=== PATIENT | male | born 1990 | race Asian ===

== ENCOUNTER 2020-01-12 11:26 | Emergency (ER) | payer OTHER ==
--- NOTE | 2020-01-12 12:00 | NUR ---
MAT TEAM CALLED PER ER DIANN Hernandez
[2020-01-12 12:21] LABS: BASOPHILS # (AUTO) 0.1 (0.0-0.1); EOSINOPHILS # (AUTO) 0.4 (0.0-0.4); EOSINOPHILS % 3.7 % (0.0-6.0); HEMATOCRIT 44.1 % (38.2-49.6); HEMOGLOBIN 14.7 g/dL (14.0-18.0); LYMPHOCYTES # (AUTO) 3.4 (1.0-3.2); LYMPHOCYTES % 33.9 % (18.0-39.1); MEAN CORPUSCULAR HEMOGLOBIN 30.6 pg (28-32); MEAN CORPUSCULAR HGB CONC 33.3 g/dL (31-35); MEAN CORPUSCULAR VOLUME 91.9 fL (81-99); MONOCYTES # (AUTO) 0.8 (0.2-0.8); MONOCYTES % 8.1 % (4.4-11.3); NEUTROPHILS # (AUTO) 5.3 (2.1-6.9); PLATELET COUNT 433 x10e3/uL (140-360); RED CELL DISTRIBUTION WIDTH 11.9 % (11.7-14.4)
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
[2020-01-12 12:48] LABS: ALANINE AMINOTRANSFERASE 30 IU/L (0-55); ALBUMIN 4.4 g/dL (3.5-5.0); ALKALINE PHOSPHATASE 51 IU/L (40-150); ANION GAP 16.8 mmol/L (8-16); BLOOD UREA NITROGEN 21 mg/dL (7-26); BUN/CREATININE RATIO 20 (6-25); CALCIUM 9.9 mg/dL (8.4-10.2); CARBON DIOXIDE 22 mmol/L (22-29); CHLORIDE 102 mmol/L (98-107); CREATININE, SERUM 1.06 mg/dL (0.72-1.25); EST GLOMERULAR FILTRATION RATE > 60 ML/MIN (60-); GLUCOSE 106 mg/dL (74-118); POTASSIUM 3.8 mmol/L (3.5-5.1); SODIUM 137 mmol/L (136-145)
[2020-01-12 13:19] LABS: SALICYLATE < 5.0 mg/dL (0-30)
--- NOTE | 2020-01-12 13:40 | NUR ---
PT SUDDENLY GOT OUT OF BED, PULLED OUT HIS IV. PT STATES HE NEEDS TO GO. ASKED PT IF HE NEEDED TO GO TO THE RESTROOM, HE STATED YES. PROVIDED PT WITH URINE SPECIMEN COLLECTION CUP AND INSTURCTE DPT TO DEPOSIT A URINE SAMPLE IN IT. PT AMBULATED TO RESTROOM WITH THIS CLINICIAN AND FOOT IN DOOR WAS IN PLACE. PT DISCARDED CUP AND URINATED IN TOILET AND THEN FLUSHED PROMPTLY. PT STATED, "I FORGOT, I NEED TO GO". PT AMBULATED BACK TO ROOM. GUARDS AT BEDSIDE. PT DID NOT WANT TO LAY DOWN IN STRETCHER, BUT RATHER SIT IN CHAIR. WILL CONTINUE TO MONITOR.
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
[2020-01-12 13:51] LABS: THYROID STIMULATING HORMONE 0.762 uIU/mL (0.350-4.940)
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
--- NOTE | 2020-01-12 14:45 | NUR ---
MORE WITH MAT TEAM CALLED AND ASKED IF PT COULD DO A ZOOM CALL FOR PSYCH EVAL DUE TO MAT TEAM BEING SHORT STAFFED AND SOMEON MAY NOT BE ABLE TO ASSESS PATIENT IN PERSON FOR A FEW HOURS. ZOOM MEETING ID#[id number], PASSWORD: [id number]. CALLED JAMES ROSE, AT THIS TIME TO OBTAIN IPAD IN WHICH TO DO ZOOM CALL FOR PSYCH EVAL.
--- NOTE | 2020-01-12 15:00 | NUR ---
ROSE ARRIVED WITH IPAD. CONNECTED TO ZOOM MEETING AND BHUPINDER INTERVIEWED PATIENT WITH 2 GUARDS AND PATIEN'T CNA PCT FROM [facility] AT BEDSIDE.
--- NOTE | 2020-01-12 15:20 | NUR ---
INTERVIEW COMPLETE. PER JHOANA WITH MAT, PT WILL BE BEST TO BE ADMITTED TO INPATIENT PSYCH FACILITY. PT MAKING ANIMAL NOISES IN ROOM AT THIS TIME AND IS LAUGHING AND TALKING TO SOMEONE WHO IS NOT THERE. PATIENT IS NOT MAKING EYE CONTACT. PT REFUSING WATER OR FOOD.
--- NOTE | 2020-01-12 15:49 | NUR ---
PATIENT CONTINUING TO SIT IN CHAIR NEXT TO GUARDS, REFUSING WATER OR FOOD. PT STATES, "IM FINE. IM OK." WILL CONTINUE TO MONITOR PATIENT.
--- NOTE | 2020-01-12 15:50 | NUR ---
MORE WITH [facility] TEAM: [phone]. INFORMED MORE THAT PATIENT'S ROLL SHEETING CUTTER STATES SHE WOULD LIKE TO SEE IF PATIENT CAN GO TO PSYCH FACILITY AT [facility] THEY HAVE A CONTRACT WITH [facility] MORE STATES SHE WILL NOTIFY THE CALL CENTER. PT'S REP NUMBER IS [phone]. WILL CONTINUE TO MONITOR.
--- NOTE | 2020-01-12 16:07 | NUR ---
PROVIDED CUP OF ICE WATER TO BEDSIDE AND REMOTE FOR TV. PT STILL UNDER SUPERVISION OF 2 GUARDS & DEPUTY SHERIFF K9 HANDLER. WILL CONTINUE TO MONITOR.
--- NOTE | 2020-01-12 16:12 | NUR ---
NURSE TO NURSE WITH DAYA ROMAN
--- NOTE | 2020-01-12 16:33 | NUR ---
PER DAYA AT [facility], THERE IS NO ACCEPTING MD FOR PATIENT TO GO TO [facility]. PT HAS BEEN DECLINED AT [facility].
--- NOTE | 2020-01-12 16:45 | NUR ---
SPOKE TO SURYA IN [facility] TO GET PATIENT A HOT TRAY OF FOOD. INSTRUCTED SURYA PATIENT WILL NEED PLASTIC UTENSILS.
--- NOTE | 2020-01-12 16:50 | NUR ---
SPOKE WITH MORE WITH MAT TEAM AND SHE STATES SHE HAS TO FAX THE OPC TO THE COURT. SHE STATES COURTS ARE CLOSED NOW, HOWEVER SHE HAS SECURED A BED FOR PT AT [facility]. PER JHOANA WITH IVAN, PT SHOULD BE ABLE TO TRANSFER TO [facility] TOMORROW INVOL. NOTIFIED PT'S GUARDS AND HEAVY DUTY PRESS OPERATOR AT BEDSIDE.
--- NOTE | 2020-01-12 17:40 | NUR ---
PT EATING DINNER IN HIS ROOM AT THIS TIME. PT DENIES COMPLAINTS EXCEPTS WANTS TO "GO HOME". PT COOPERATIVE. WILL CONTINUE TO MONITOR. PT'S 2 GUARDS AND CARDROOM DRAWING RUNNER REMAIN AT BEDSIDE WITH PATIENT.
--- NOTE | 2020-01-12 18:39 | NUR ---
PT AMBULATED TO RESTROOM WITH GUARD
--- NOTE | 2020-01-12 19:06 | NUR ---
PT AMBULATED TO RESTROOM ONCE AGAIN WITH GUARD, STILL DID NOT PROVIDE URINE SAMPLE.
--- NOTE | 2020-01-12 19:07 | NUR ---
Patient refusing vital signs at this time. Guards remain at bedside.
[2020-01-12 20:16] LABS: AMPHETAMINES SCREEN,URINE NEGATIVE (NEGATIVE); BENZODIAZEPINES SCREEN,URINE POSITIVE (NEGATIVE); BILIRUBIN,URINE NEGATIVE (NEGATIVE); CLARITY,URINE SL CLOUDY (CLEAR); COLOR,URINE YELLOW (YELLOW); KETONES,URINE TRACE (NEGATIVE); LEUKOCYTE ESTERASE ,URINE NEGATIVE (NEGATIVE); NITRITE,URINE NEGATIVE (NEGATIVE); PHENCYCLIDINE SCREEN,URINE NEGATIVE (NEGATIVE); PROTEIN,URINE DIPSTICK NEGATIVE (NEGATIVE); URINE UROBILINOGEN 0.2 mg/dL (0.2 - 1)
[2020-01-12 20:25] LABS: BACTERIA,URINE RARE /HPF; WBC,URINE (MAN) 0-5 /HPF (0-5)
--- NOTE | 2020-01-12 21:00 | NUR ---
Patient continues to business banker the corner and refusing vital signs at this time. Patient refusing assessment and refusing to talk to me at this time. Guards remain at bedside.
--- NOTE | 2020-01-12 23:24 | NUR ---
Patient continues to refuse food, water, or vital signs at this time. Will continue to monitor patient. Guards remain at bedside.
[2020-01-13] MEDS ORDERED: DIPHENHYDRAMINE HCL INJ 50 MG/ML VIAL ONE (00:38)
[2020-01-13] MEDS ORDERED: ZIPRASIDONE 20 MG VIAL IM ONE (00:38)
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
[2020-01-13] MEDS ORDERED: DIPHENHYDRAMINE HCL INJ 50 MG/ML VIAL IM STA (01:16)
[2020-01-13] MEDS ORDERED: ZIPRASIDONE 20 MG VIAL IM STA ×2 (01:16→01:53)
[2020-01-13] MEDS ORDERED: DIPHENHYDRAMINE HCL INJ 50 MG/ML VIAL IM ONE (02:00)
--- NOTE | 2020-01-13 02:00 | NUR ---
PT SLEEPING AT THIS TIME. BED IS LOCKED AND IN LOWEST POSITION. SIDE RAIL UP. GAURDS AT BEDSIDE.
--- NOTE | 2020-01-13 02:46 | NUR ---
Please see written Medication Administration Record on chart.
--- NOTE | 2020-01-13 04:32 | NUR ---
ERIC signed by diving judge received at this time. Copy placed on chart.
--- NOTE | 2020-01-13 06:05 | NUR ---
Patient continues to sleep. No distress noted. Guards remain at bedside.
--- NOTE | 2020-01-13 06:59 | NUR ---
Report to VALENTINO Soto
--- NOTE | 2020-01-13 07:15 | NUR ---
spoke to MAT Team, states that they are going through shift change and will give an update as soon as it is available, pt still pending OPC signed by the presiding judge
--- NOTE | 2020-01-13 10:21 | NUR ---
spoke to Latesha RN [phone] from [facility], report given, doctor-doctor needs to be done for clearance and approval, Dr. Ireland called on his personal cell [phone] and voicemail was left
--- NOTE | 2020-01-13 11:23 | NUR ---
patient accepted by Dr. Ireland @ [id number], Janice Alex @[phone]
--- NOTE | 2020-01-13 11:27 | NUR ---
nurse to nurse report done at this time, pending OPC and ETA for Constable
--- NOTE | 2020-01-13 16:18 | NUR ---
still pending Constable to warehouse order picker patient, no ETA given
--- NOTE | 2020-01-13 16:24 | NUR ---
pt refusing to have vital signs taken at this time, noted to be talking to the wall but appears to be in no distress, pending constable to transport patient to [facility]
[2020-01-13 20:41] VITALS: BP 130/105
== END 2020-01-13 20:44 ==
LOC: ER 12:28
DX: F29 Unspecified psychosis not due to a substance or known physiological condition (principal)
CPT/HCPCS: 36415; 80053; 80307; 80320; 80329 ×2; 81001; 84443; 85025; 99284; J1200; J3486